=== PATIENT | male | born 1950 | race Caucasian/White ===

== ENCOUNTER → 2017-06-18 | Outpatient (CLI) | payer MEDICARE, OTHER ==
[~2017-06-18] MED LIST: ADVAIR 250-501 EACH IH; ADVAIR 250-501 EACH INH; ADVAIR HFA115 MCG/21 INH; ALBUTEROL SULFAT4 MG PO; ALBUTEROL2.5 MG/32 IH; ALDACTONE25 MG PO; ATROVENT30 ML IH; ATROVENT30 ML NS; AVELOX 400 MG400 MG PO; CARVEDILOL3.125 MG PO; CIPROFLOXACIN500 M1 PO; COZAAR 50 MG TA50 M2 PO; DUONEB 2.5-0.5 M3 ML INH; FUROSEMIDE 40 M40 M1 PO; GLYBURIDE 2.52.5 MG PO; HYDROCODON-ACE1 EACH PO; LANOXIN 0.250.25 M1 PO; LASIX PO; LEVAQUIN 500 M500 M2 PO; LISINOPRIL2.5 MG PO; METFORMIN HCL500 MG PO; METOPROLOL SUCC25 M1 PO; MUCINEX100 MG PO; PREDNISONE 10 M10 MG PO; PREDNISONE 20 M20 MG PO; PREDNISONE50 MG PO; PRINIVIL5 MG; PROTONIX40 M1 PO; PULMICORT FLEX90 MCG IH; SPIRONOLACTONE PO; THEOPHYLLINE S300 M1 PO; VENTOLIN HFA 1818 GM INH; XOLAIR INJ; XOPENEX; XOPENEX HF1 UDINHALE IH; ZPAK PO
[2017-06-18 10:45] LABS: HEMOGLOBIN 14.1 gm/dL (14.0-18.0); MCH 30.4 pg (26.0-34.0); MCHC 33.5 g/dL (28.0-37.0); MCV 90.8 fL (80.0-100.0); MPV 10.3 fl. (7.2-11.1); RBC 4.63 mil/uL (4.50-6.00); WBC 8.3 thou/uL (4.0-11.0)
[2017-06-18 11:03] LABS: ALBUMIN 3.6 g/dL (3.4-5.0); CALCIUM 8.8 mg/dL (8.5-10.1); CREATININE 0.7 mg/dL (0.6-1.3); POTASSIUM 4.2 mmol/L (3.5-5.1); TOTAL BILIRUBIN 0.5 mg/dL (<0.1-1.0); TOTAL PROTEIN 7.7 g/dL (6.4-8.2)
[2017-06-19 03:08] LABS: GLYCOHEMOGLOBIN (HGB A1C) 7.5 % (4.8-5.6)
== END ==
LOC: M.LAB 10:15
PROVIDERS: General Practice
DX: L03.90 Cellulitis, unspecified (principal); J44.1 Chronic obstructive pulmonary disease with (acute) exacerbation; I11.0 Hypertensive heart disease with heart failure; I50.9 Heart failure, unspecified

== ENCOUNTER → 2018-10-13 | Outpatient (CLI) | payer MEDICARE, OTHER ==
[2018-10-13 13:23] LABS: ALBUMIN 3.5 g/dL (3.4-5.0); ALKALINE PHOSPHATASE 61 U/L (46-116); ANION GAP 11 mmol/L (7-16); BUN 14 mg/dL (7-18); CALCIUM 9.1 mg/dL (8.5-10.1); CHLORIDE 99 mmol/L (98-107); CHOLESTEROL 153 mg/dL (<200); CO2 26 mmol/L (21-32); CREATININE 0.7 mg/dL (0.6-1.3); GLUCOSE 309 mg/dL (70-99); HDL CHOLESTEROL 49 mg/dL (>40); LDL CHOLESTEROL 82 mg/dL (<100); POTASSIUM 4.7 mmol/L (3.5-5.1); SGOT 32 U/L (15-37); SGPT 58 U/L (30-65); SODIUM 136 mmol/L (136-145); TC:HDL 3.1 Ratio (Not establshd); TOTAL BILIRUBIN 0.3 mg/dL (<0.1-1.0); TOTAL PROTEIN 7.1 g/dL (6.4-8.2); TRIGLYCERIDE 113 mg/dL (<150); VLDL 23 mg/dL (<40)
[2018-10-13 13:24] LABS: SERUM ASSESSMENT Clear
== END ==
LOC: M.RAD 11:58
PROVIDERS: Registered Nurse
DX: J84.9 Interstitial pulmonary disease, unspecified (principal); I48.0 Paroxysmal atrial fibrillation; E78.2 Mixed hyperlipidemia; I42.8 Other cardiomyopathies

== ENCOUNTER 2018-10-20 07:47 | Emergency (ER) | payer MEDICARE, OTHER ==
[~2018-10-20] VITALS: Ht 165.1 cm; Wt 119.8 kg
[2018-10-20] MEDS ORDERED: XARELTO20 MG PO (08:02)
[2018-10-20] MEDS ORDERED: SPIRONOLACTONE25 M1 PO (08:02)
[2018-10-20] MEDS ORDERED: PACERONE 200 M200 M1 PO (08:02)
[2018-10-20 08:32] LABS: ABSOLUTE BASOPHILS 0.1 thou/uL (0.0-0.2); ABSOLUTE EOSINOPHILS 0.1 thou/uL (0.0-0.7); ABSOLUTE LYMPHOCYTES 1.8 thou/uL (0.8-5.3); ABSOLUTE MONOCYTES 0.5 thou/uL (0.0-1.2); ABSOLUTE NEUTROPHILS 4.8 thou/uL (1.6-8.1); BASOPHILS 1.2 %; EOSINOPHILS 1.4 %; HEMATOCRIT 41.7 % (42.0-52.0); HEMOGLOBIN 14.2 gm/dL (14.0-18.0); LYMPHOCYTES 24.1 %; MCH 30.1 pg (26.0-34.0); MCV 88.6 fL (80.0-100.0); MONOCYTES 6.8 %; MPV 11.9 fl. (7.2-11.1); NUCLEATED RBCS 0 /100WBC; PLATELET COUNT* 148 thou/uL (150-400); POLYS 66.5 %; RBC 4.71 mil/uL (4.50-6.00); RDW-CV 12.7 % (10.5-14.5); WBC 7.3 thou/uL (4.0-11.0)
[2018-10-20 08:38] LABS: ANION GAP 10 mmol/L (7-16); APTT 30.3 Seconds (25.0-31.3); BUN 16 mg/dL (7-18); CALCIUM 8.8 mg/dL (8.5-10.1); CHLORIDE 96 mmol/L (98-107); CO2 25 mmol/L (21-32); CREATININE 0.9 mg/dL (0.6-1.3); GLUCOSE 311 mg/dL (70-99); INR 1.2; POTASSIUM 4.3 mmol/L (3.5-5.1); PROTIME 11.9 Seconds (9.20-11.50); SODIUM 131 mmol/L (136-145)
[2018-10-20 08:49] LABS: ALBUMIN 3.4 g/dL (3.4-5.0); ALKALINE PHOSPHATASE 64 U/L (46-116); LIPASE 56 U/L (73-393); MAGNESIUM 1.8 mg/dL (1.8-2.4); NT-PRO BRAIN NAT PEPTIDE 1494 pg/mL (<300); SGOT 27 U/L (15-37); SGPT 60 U/L (30-65); TOTAL BILIRUBIN 0.5 mg/dL (<0.1-1.0); TOTAL PROTEIN 7.2 g/dL (6.4-8.2); TROPONIN-I LEVEL <0.06 ng/mL (<0.06)
[2018-10-20] MEDS ORDERED: PREDNISONE 20 M20 M1 PO (09:06)
[2018-10-20 09:15] VITALS: BP 127/84
--- NOTE | 2018-10-20 10:54 | EKG ---
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: : 1950 Requested By: Garland Mayo Order Number: [id number] MD: Grady Santoyo Measurements Intervals [place] Rate: 87 P: [place]: QRS: -52 QRSD: 182 T: 123 QT: 429 QTc: 516 Interpretive Statements Afib/flut and V-paced complexes No further rhythm analysis attempted due to paced rhythm Left bundle branch block Baseline wander in lead(s) I,III,aVR,aVL Compared to ECG 01/23/2017 20:15:18 Left bundle-branch block now present Electronically Signed On 10-20-2018 10:54:10 CDT by Grady Santoyo [email or web address] <ELECTRONICALLY SIGNED> By: Grady Santoyo MD, FACC 10/20/18 1054 2 2 Grady Santoyo MD, FAC /EPI
== END 2018-10-20 09:16 | disposition home or self-care (01) ==
LOC: M.ERS 07:47
PROVIDERS: Family Medicine
DX: J44.1 Chronic obstructive pulmonary disease with (acute) exacerbation (principal); I50.9 Heart failure, unspecified; G47.30 Sleep apnea, unspecified; I48.91 Unspecified atrial fibrillation; E66.01 Morbid (severe) obesity due to excess calories; I73.9 Peripheral vascular disease, unspecified; I89.0 Lymphedema, not elsewhere classified; Z86.14 Personal history of Methicillin resistant Staphylococcus aureus infection; Z95.0 Presence of cardiac pacemaker; Z88.2 Allergy status to sulfonamides; Z88.5 Allergy status to narcotic agent; Z88.6 Allergy status to analgesic agent; Z88.8 Allergy status to other drugs, medicaments and biological substances; Z87.891 Personal history of nicotine dependence

== ENCOUNTER 2018-11-13 18:43 | Inpatient (IN) | payer MEDICARE, OTHER ==
[~2018-11-13] VITALS: Ht 165.1 cm; Wt 111.4 kg
[~2018-11-13 18:43] MED LIST changes: +COZAAR 50 MG TA50 M1 PO; -COZAAR 50 MG TA50 M2 PO; -DUONEB 2.5-0.5 M3 ML INH; +IPRAT-ALBUT 0.5-3 ML INH; +PACERONE 200 M200 M1 PO; +PREDNISONE 20 M20 M1 PO; +SPIRONOLACTONE25 M1 PO; +XARELTO20 MG PO
[2018-11-13 18:47] VITALS: BP 122/88
[2018-11-13] MEDS ORDERED: PACERONE 200 M200 M1 PO (18:52)
[2018-11-13] MEDS ORDERED: PENICILLIN V P500 MG PO (18:54)
[2018-11-13 20:03] LABS: ABSOLUTE BASOPHILS 0.1 thou/uL (0.0-0.2); ABSOLUTE EOSINOPHILS 0.1 thou/uL (0.0-0.7); ABSOLUTE LYMPHOCYTES 0.9 thou/uL (0.8-5.3); ABSOLUTE MONOCYTES 0.4 thou/uL (0.0-1.2); ABSOLUTE NEUTROPHILS 3.8 thou/uL (1.6-8.1); EOSINOPHILS 1.8 %; HEMATOCRIT 40.7 % (42.0-52.0); HEMOGLOBIN 13.5 gm/dL (14.0-18.0); LYMPHOCYTES 17.4 %; MCH 29.8 pg (26.0-34.0); MCHC 33.1 g/dL (28.0-37.0); MCV 89.8 fL (80.0-100.0); MONOCYTES 7.6 %; MPV 10.7 fl. (7.2-11.1); NUCLEATED RBCS 0 /100WBC; PLATELET COUNT* 117 thou/uL (150-400); POLYS 72.2 %; RBC 4.53 mil/uL (4.50-6.00); RDW-CV 13.3 % (10.5-14.5); WBC 5.3 thou/uL (4.0-11.0)
[2018-11-13 20:11] LABS: ANION GAP 5 mmol/L (7-16); BUN 13 mg/dL (7-18); CALCIUM 8.4 mg/dL (8.5-10.1); CHLORIDE 98 mmol/L (98-107); CO2 30 mmol/L (21-32); CREATININE 0.8 mg/dL (0.6-1.3); GLUCOSE 339 mg/dL (70-99); POTASSIUM 4.2 mmol/L (3.5-5.1); SODIUM 133 mmol/L (136-145)
[2018-11-13 20:13] LABS: APTT 34.9 Seconds (25.0-31.3); INR 1.2
[2018-11-13 20:21] LABS: ALBUMIN 3.1 g/dL (3.4-5.0); ALKALINE PHOSPHATASE 60 U/L (46-116); MAGNESIUM 1.8 mg/dL (1.8-2.4); SGOT 17 U/L (15-37); SGPT 31 U/L (30-65); TOTAL BILIRUBIN 0.5 mg/dL (<0.1-1.0); TOTAL PROTEIN 6.8 g/dL (6.4-8.2); TROPONIN-I LEVEL <0.06 ng/mL (<0.06)
[2018-11-13 20:52] LABS: BE 2.2 mmol/L (-2 to +3); PO2 81.1 mmHg (75.0-100.0); pH 7.487 (7.340-7.450)
[2018-11-13 22:07] VITALS: BP 91/61
[2018-11-13 22:25] VITALS: BP 132/68
[2018-11-14 02:14] LABS: HEMATOCRIT 39.4 % (42.0-52.0); HEMOGLOBIN 13.2 gm/dL (14.0-18.0); MCH 29.7 pg (26.0-34.0); MCHC 33.4 g/dL (28.0-37.0); MCV 88.9 fL (80.0-100.0); MPV 10.7 fl. (7.2-11.1); RBC 4.44 mil/uL (4.50-6.00); RDW-CV 13.1 % (10.5-14.5)
[2018-11-14 02:40] LABS: CALCIUM 8.1 mg/dL (8.5-10.1); CREATININE 0.8 mg/dL (0.6-1.3); MAGNESIUM 1.8 mg/dL (1.8-2.4); POTASSIUM 4.6 mmol/L (3.5-5.1); TOTAL BILIRUBIN 0.5 mg/dL (<0.1-1.0); TOTAL PROTEIN 6.4 g/dL (6.4-8.2)
[2018-11-14 04:00] VITALS: BP 103/68
[2018-11-14 08:00] VITALS: BP 104/69
[2018-11-14 11:37] VITALS: BP 106/68
--- NOTE | 2018-11-14 13:05 | EKG ---
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: [place] : 1950 Requested By: Juliana Alaniz Order Number: [id number] MD: Xiang Shepherd Measurements Intervals [place] Rate: 93 P: 59 CO: 194 QRS: 252 QRSD: 156 T: 55 QT: 409 QTc: 509 Interpretive Statements Atrial-sensed ventricular-paced complexes No further analysis attempted due to paced rhythm Baseline wander in lead(s) V2,V4 Compared to ECG 10/20/2018 08:23:39 Atrial fibrillation no longer present Electronically Signed On 11-14-2018 13:04:48 CDT by Xiang Shepherd [email or web address] <ELECTRONICALLY SIGNED> By: Xiang Shepherd MD, [facility] 11/14/18 1304 57 57 Xiang Shepherd MD, [facility] /EPI
[2018-11-14 15:24] VITALS: BP 97/53
[2018-11-15] VITALS: BP 103/54
[2018-11-15 03:07] LABS: GLYCOHEMOGLOBIN (HGB A1C) 13.7 % (4.8-5.6)
[2018-11-15 03:46] VITALS: BP 112/69
[2018-11-15 07:40] VITALS: BP 117/60
[2018-11-15 12:00] VITALS: BP 121/65
[2018-11-15 16:00] VITALS: BP 100/69
[2018-11-15 19:40] VITALS: BP 116/75
[2018-11-16] VITALS: BP 92/63
[2018-11-16 04:09] VITALS: BP 100/58
[2018-11-16 08:19] VITALS: BP 95/40
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
--- NOTE | 2018-11-16 10:56 | EKG ---
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 : 1950 Requested By: Xiang Shepherd Order Number: [id number] Reji MD: Xiang Shepherd Measurements Intervals [place] Rate: 98 P: VT: QRS: -14 QRSD: 183 T: 188 QT: 392 QTc: 501 Interpretive Statements Atrial fibrillation Left bundle branch block Compared to ECG 11/13/2018 19:58:59 Ventricular-paced complex(es) or rhythm no longer present Atrial fibrillation now noted Electronically Signed On 11-16-2018 10:56:31 CDT by Xiang Shepherd [email or web address] <ELECTRONICALLY SIGNED> By: Xiang Shepherd MD, [facility] 11/16/18 1056 Xiang Shepherd MD, [facility] /EPI
[2018-11-16 12:49] VITALS: BP 97/61
[2018-11-16 17:34] VITALS: BP 105/73
[2018-11-16 19:40] VITALS: BP 90/52
[2018-11-17] VITALS (7 sets, daily range): BP systolic 97–119; BP diastolic 51–67
[2018-11-17 04:25] LABS: HEMATOCRIT 43.6 % (42.0-52.0); HEMOGLOBIN 14.5 gm/dL (14.0-18.0); MCH 29.9 pg (26.0-34.0); MCHC 33.3 g/dL (28.0-37.0); MPV 10.5 fl. (7.2-11.1); RBC 4.84 mil/uL (4.50-6.00); RDW-CV 13.4 % (10.5-14.5); WBC 8.1 thou/uL (4.0-11.0)
[2018-11-17 04:44] LABS: CALCIUM 8.2 mg/dL (8.5-10.1); CREATININE 0.9 mg/dL (0.6-1.3); MAGNESIUM 2.1 mg/dL (1.8-2.4); POTASSIUM 5.1 mmol/L (3.5-5.1)
--- NOTE | 2018-11-17 16:09 | EKG ---
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
[2018-11-18] VITALS: BP 109/70
[2018-11-18 01:12] LABS: URINE BILIRUBIN NEGATIVE (Negative); URINE BLOOD NEGATIVE (Negative); URINE CLARITY CLEAR; URINE COLOR STRAW; URINE GLUCOSE-RANDOM NEGATIVE (Negative); URINE KETONES NEGATIVE (Negative); URINE LEUKOCYTES-REFLEX NEGATIVE (Negative); URINE NITRITE-REFLEX NEGATIVE (Negative); URINE PROTEIN NEGATIVE (Negative); URINE UROBILINOGEN 0.2 E.U./dl (0.2-1.0)
[2018-11-18 04:00] VITALS: BP 109/70; BP 118/65
[2018-11-18 08:00] VITALS: BP 112/80
[2018-11-18 12:00] VITALS: BP 117/68
[2018-11-18 14:00] VITALS: BP 101/66
[2018-11-18 20:00] VITALS: BP 110/75
[2018-11-19 00:04] VITALS: BP 127/51
[2018-11-19 04:00] VITALS: BP 108/64
[2018-11-19 05:27] LABS: HEMOGLOBIN 15.5 gm/dL (14.0-18.0); MCH 29.7 pg (26.0-34.0); MCV 89.8 fL (80.0-100.0); MPV 10.4 fl. (7.2-11.1); RBC 5.24 mil/uL (4.50-6.00); RDW-CV 13.5 % (10.5-14.5); WBC 12.5 thou/uL (4.0-11.0)
[2018-11-19 05:37] LABS: CALCIUM 8.7 mg/dL (8.5-10.1); CREATININE 0.9 mg/dL (0.6-1.3); MAGNESIUM 2.3 mg/dL (1.8-2.4)
[2018-11-19 08:00] VITALS: BP 109/75
[2018-11-19 11:29] VITALS: BP 92/60
[2018-11-19 16:00] VITALS: BP 114/58
[2018-11-19 20:00] VITALS: BP 97/71
[2018-11-20] VITALS: BP 114/81
[2018-11-20 04:00] VITALS: BP 102/67
[2018-11-20 08:00] VITALS: BP 100/67
[2018-11-20 13:26] VITALS: BP 92/57
[2018-11-20 19:25] VITALS: BP 93/54
[2018-11-21] VITALS: BP 104/68
[2018-11-21 04:00] VITALS: BP 117/75; BP 126/75
[2018-11-21 04:42] LABS: HEMATOCRIT 48.8 % (42.0-52.0); HEMOGLOBIN 16.1 gm/dL (14.0-18.0); MCH 29.5 pg (26.0-34.0); MCV 89.1 fL (80.0-100.0); MPV 10.2 fl. (7.2-11.1); RBC 5.47 mil/uL (4.50-6.00); RDW-CV 13.8 % (10.5-14.5); WBC 13.1 thou/uL (4.0-11.0)
[2018-11-21 05:00] LABS: CALCIUM 8.3 mg/dL (8.5-10.1); CREATININE 1.1 mg/dL (0.6-1.3); MAGNESIUM 2.4 mg/dL (1.8-2.4); POTASSIUM 5.1 mmol/L (3.5-5.1)
[2018-11-21 08:06] VITALS: BP 106/66
[2018-11-21 11:43] VITALS: BP 104/74
[2018-11-21 15:50] VITALS: BP 98/60
[2018-11-21 20:06] VITALS: BP 98/52
[2018-11-22] VITALS: BP 120/70
[2018-11-22 04:00] VITALS: BP 110/53
[2018-11-22 04:28] LABS: CREATININE 1.1 mg/dL (0.6-1.3); MAGNESIUM 2.3 mg/dL (1.8-2.4); POTASSIUM 4.8 mmol/L (3.5-5.1)
[2018-11-22 08:09] VITALS: BP 108/71
[2018-11-22 11:57] VITALS: BP 113/82
[2018-11-22 15:31] VITALS: BP 116/72
[2018-11-22 20:00] VITALS: BP 96/55
[2018-11-23 00:06] VITALS: BP 105/67
[2018-11-23 04:00] VITALS: BP 98/68
[2018-11-23 05:27] LABS: CALCIUM 8.2 mg/dL (8.5-10.1); CREATININE 1.1 mg/dL (0.6-1.3); MAGNESIUM 2.4 mg/dL (1.8-2.4)
[2018-11-23 08:00] VITALS: BP 93/69
[2018-11-23] MEDS ORDERED: SINGULAIR 10 MG10 M1 PO (08:27)
[2018-11-23] MEDS ORDERED: OMEPRAZOLE40 MG PO (08:27)
[2018-11-23] MEDS ORDERED: GLUCOTROL5 MG PO (08:27)
[2018-11-23] MEDS ORDERED: MUCINEX600 MG PO (08:27)
[2018-11-23] MEDS ORDERED: PREDNISONE 10 M10 MG PO (08:27)
[2018-11-23] MEDS ORDERED: LANTUS100 UNIT/M SUBQ (08:30)
[2018-11-23 11:27] VITALS: BP 103/60
[2018-11-23] MEDS ORDERED: PACERONE 200 M200 M1 PO (14:08)
== END 2018-11-23 16:53 | disposition home or self-care (01) | DRG 291 ==
LOC: M.ERS 18:43 → M.TBA-ER 20:58 → M.2W 20:58
PROVIDERS: Internal Medicine; Personal Emergency Response Attendant; ADMIT Internal Medicine
PROC: 5A09357 Assistance with Respiratory Ventilation, Less than 24 Consecutive Hours, Continuous Positive Airway Pressure (ICD-10-PCS; principal; 2018-11-14)
DX: I50.23 Acute on chronic systolic (congestive) heart failure (principal); J96.01 Acute respiratory failure with hypoxia; J44.1 Chronic obstructive pulmonary disease with (acute) exacerbation; Z68.41 Body mass index [BMI] 40.0-44.9, adult; I42.9 Cardiomyopathy, unspecified; I47.2 Ventricular tachycardia; J44.0 Chronic obstructive pulmonary disease with (acute) lower respiratory infection; G47.33 Obstructive sleep apnea (adult) (pediatric); I44.7 Left bundle-branch block, unspecified; J20.9 Acute bronchitis, unspecified; E11.51 Type 2 diabetes mellitus with diabetic peripheral angiopathy without gangrene; E11.65 Type 2 diabetes mellitus with hyperglycemia; I89.0 Lymphedema, not elsewhere classified; I48.91 Unspecified atrial fibrillation; E66.01 Morbid (severe) obesity due to excess calories; Z88.6 Allergy status to analgesic agent; Z88.1 Allergy status to other antibiotic agents; Z88.2 Allergy status to sulfonamides; Z88.8 Allergy status to other drugs, medicaments and biological substances; Z95.810 Presence of automatic (implantable) cardiac defibrillator; Z82.49 Family history of ischemic heart disease and other diseases of the circulatory system; Z87.891 Personal history of nicotine dependence

== ENCOUNTER → 2018-12-03 | Outpatient (CLI) | payer MEDICARE, OTHER ==
[~2018-12-03] MED LIST changes: +GLUCOTROL5 MG PO; +LANTUS100 UNIT/M SUBQ; +MUCINEX600 MG PO; +OMEPRAZOLE40 MG PO; +PENICILLIN V P500 MG PO; +SINGULAIR 10 MG10 M1 PO
[2018-12-03 11:37] LABS: CALCIUM 8.2 mg/dL (8.5-10.1); CREATININE 0.9 mg/dL (0.6-1.3); POTASSIUM 4.3 mmol/L (3.5-5.1)
== END ==
LOC: M.LAB 10:42
PROVIDERS: Nurse Practitioner
DX: I50.22 Chronic systolic (congestive) heart failure (principal); I48.91 Unspecified atrial fibrillation; G47.33 Obstructive sleep apnea (adult) (pediatric); E11.9 Type 2 diabetes mellitus without complications; J42 Unspecified chronic bronchitis

== ENCOUNTER → 2019-01-12 | Outpatient (CLI) | payer MEDICARE, OTHER ==
[2019-01-12 09:00] VITALS: BP 124/74
[2019-01-12 09:31] LABS: HEMATOCRIT 36.8 % (42.0-52.0); HEMOGLOBIN 12.2 gm/dL (14.0-18.0); MCH 30.1 pg (26.0-34.0); MCHC 33.2 g/dL (28.0-37.0); MCV 90.7 fL (80.0-100.0); MPV 10.9 fl. (7.2-11.1); RBC 4.05 mil/uL (4.50-6.00); RDW-CV 15.7 % (10.5-14.5); WBC 6.2 thou/uL (4.0-11.0)
[2019-01-12 09:41] LABS: CALCIUM 9.1 mg/dL (8.5-10.1); CREATININE 0.9 mg/dL (0.6-1.3); POTASSIUM 4.3 mmol/L (3.5-5.1)
[2019-01-12 09:45] LABS: ALBUMIN 3.3 g/dL (3.4-5.0); TOTAL BILIRUBIN 0.6 mg/dL (<0.1-1.0)
[2019-01-12 09:49] VITALS: BP 103/54
[2019-01-12 09:53] VITALS: BP 103/64
--- NOTE | 2019-01-12 10:03 | EKG ---
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
[2019-01-12 10:22] VITALS: BP 106/58
[2019-01-12 11:11] VITALS: BP 115/58
--- NOTE | 2019-01-20 08:20 | CARD ---
[address] [address] CARDIAC CATH REPORT Name: MARQUITA MATHEW Room: [facility]#: [id number] Admission: 01/12/19 Attend Phys: Grady Santoyo MD Discharge: Date of : 50 Report #: [id number] THIS REPORT FOR: //name// CC: Grady Quarles PROCEDURE: Cardioversion. INDICATION: Persistent atrial fibrillation. DESCRIPTION OF PROCEDURE: After informed consent was obtained, the patient was brought to the cardiac holding area. The patient was given intravenous Versed and fentanyl for conscious sedation. Once the patient was adequately sedated, he received a single biphasic shock of 300 joules converting from atrial fibrillation to sinus rhythm with ventricular pacing. The patient tolerated the procedure well without complication. IMPRESSION: 1. Persistent atrial fibrillation. 2. Successful direct current cardioversion to normal sinus rhythm. <ELECTRONICALLY SIGNED> By: Grady Santoyo MD, FACC 01/20/19 0820 1751 2104Mickatie Santoyo MD, FACC /nt
== END | disposition home or self-care (01) ==
LOC: M.CL 08:44
PROVIDERS: Internal Medicine Cardiovascular Disease
DX: I48.19 Other persistent atrial fibrillation (principal); J44.9 Chronic obstructive pulmonary disease, unspecified; I50.22 Chronic systolic (congestive) heart failure; E66.01 Morbid (severe) obesity due to excess calories; I73.9 Peripheral vascular disease, unspecified; G47.30 Sleep apnea, unspecified; Z98.890 Other specified postprocedural states; Z95.0 Presence of cardiac pacemaker; Z79.01 Long term (current) use of anticoagulants; Z88.8 Allergy status to other drugs, medicaments and biological substances; Z88.2 Allergy status to sulfonamides; Z79.899 Other long term (current) drug therapy; Z87.891 Personal history of nicotine dependence; Z82.49 Family history of ischemic heart disease and other diseases of the circulatory system

== ENCOUNTER → 2019-02-10 | Outpatient (CLI) | payer MEDICARE, OTHER ==
[~2019-02-10] MED LIST changes: +KEFLEX500 M2 PO
== END ==
LOC: M.ULTRA 12:50
DX: M79.89 Other specified soft tissue disorders (principal); M79.605 Pain in left leg

== ENCOUNTER 2019-02-12 12:30 | Inpatient (IN) | payer MEDICARE, OTHER ==
[~2019-02-12] VITALS: Ht 165.1 cm; Wt 113.4 kg
--- NOTE | ~2019-02-12 | CON ---
[address] [address] CONSULTATION Name: MARQUITA MATHEW Room: [address] IN M.R.#: [id number] Admission: 02/12/19 Attend Phys: Sherly Campos Discharge: Date of : 50 Report #: [id number] THIS REPORT FOR: //name// CC: Frank Urbina DATE OF SERVICE: 02/14/2019 INFECTIOUS DISEASE CONSULTATION ATTENDING PHYSICIAN: Eladio Urbina DO HISTORY OF PRESENT ILLNESS: The patient is a 68-year-old white man who developed some fevers and chills on Friday, he thought he might have a viral infection, but he was corrected by Emergency Room physician and advised he has cellulitis of the left leg, superimposed on chronic stasis dermatitis and started on treatment with vancomycin and clindamycin, correct choice. The patient is some better. Obviously still significant pain, left leg. He has chronic stasis dermatitis both lower extremities and I believe this might be the first bout of cellulitis, though I read in the chart that he had previous Staphylococcus aureus infection. PAST MEDICAL HISTORY: Chronic obstructive pulmonary disease. Obesity. Left bundle branch block requiring permanent pacemaker at [facility]. Subsequent development of atrial fibrillation requiring conversion. Diabetes mellitus, congestive heart failure, undescended testicle, missing teeth, periodontal disease, obstructive sleep apnea. DRUG ALLERGIES: ASPIRIN, CEFOTAXIME, ERYTHROMYCIN, OXYCODONE, ____, SECOBARBITAL, SULFA DRUGS. MEDICATIONS: The patient is currently on treatment with ibuprofen 800 mg p.r.n. every 6 hours, oxycodone 5 mg every 6 hours p.r.n., vancomycin 1 gram IV every 12 hours, insulin glargine as directed subcutaneously, montelukast 10 mg at bedtime, metoprolol 12.5 b.i.d., budesonide 0.5 mg b.i.d. inhalation, furosemide 40 mg p.o. daily, spironolactone 25 mg daily, losartan 25 mg daily, amiodarone 200 mg daily, rivaroxaban 25 mg with dinner, Atrovent and albuterol inhalation treatments every 4 hours, clindamycin 50 mL every 6 hours which somehow it translates into 600 mg IV every 6 hours (____), albuterol inhalation treatments p.r.n. and sodium chloride at 1000 mL every 10 hours. SOCIAL HISTORY: See H and P. FAMILY HISTORY: See H and P. REVIEW OF SYSTEMS: See H [place] [address] CONSULTATION Name: MARQUITA MATHEW Room: [address] IN M.R.#: [id number] Admission: 02/12/19 Attend Phys: Sherly Campos Discharge: Date of : 50 Report #: [id number] PHYSICAL EXAMINATION: GENERAL: Morbidly obese white man, not toxic-looking, no distress. VITAL SIGNS: Afebrile since admission, temperature 98.5, pulse 97, respirations 20, BP 111/65. Height 5 feet 5 inches, weight 250 pounds. HEENT: Pupils are reactive. Conjunctivae normal. Mouth: Missing most teeth, but a few incisors on the right side of the jaw that are miserably infected with periodontal disease and must be extracted. NECK: Supple, no thyromegaly. LUNGS: Clear. Pacemaker pocket. CHEST: Left infraclavicular region with no fluid around it, it looks fine. HEART: S1, S2. No gallop or murmur. ABDOMEN: Obese, soft, no masses or megaly. GENITALIA AND RECTAL: Deferred. EXTREMITIES: Reveal typical stasis dermatitis with hyperpigmentation right leg. Onychogryphosis, left foot. No obvious tinea pedis, but there might be some there. Redness and swelling and tenderness, increased temperature left leg, obvious cellulitis, left leg, either due to Streptococcus or Staphylococcus since I see no open lesions. LABORATORY DATA: Ultrasound venous, left lower extremity, negative for DVT. BMP revealed a BUN of 28, creatinine 1.1, glucose between 105 and 190. His calcium is 8.3, very likely secondary to hypoalbuminemia of 2.9 g/dL. His vancomycin trough was 13 mcg/dL which is within therapeutic range. WBC normal at 8.8, hemoglobin low 12.8, platelets normal at 168,000. White blood cell count rather unremarkable. Blood cultures obviously were obtained and obviously they remain negative, I suspect they will be negative forever. ASSESSMENT: 1. Cellulitis, left lower extremity, superimposed on chronic stasis dermatitis and very likely tinea pedis. 2. Diabetes mellitus. 3. Chronic kidney disease. 4. Left bundle branch block, status post permanent pacemaker, complicated by atrial fibrillation, status post cardioversion and congestive heart failure. 5. Morbid obesity. SUGGESTIONS: Recommend continue vancomycin. Obviously, if no MRSA is found, Rocephin will be the drug of choice. Cleocin for 24-48 hours will prevent release of toxin by Streptococcus should this be the germ. Lotrisone cream might help. Also advised the patient, he must have total dental extraction to prevent complication of chronic inflammation up on the cardiovascular system. Immunizations with Pneumovax and influenza vaccine obviously need that to be emphasized. [address] [address] CONSULTATION Name: MARQUITA MATHEW Room: [address] IN M.R.#: [id number] Admission: 02/12/19 Attend Phys: Sherly Campos Discharge: Date of : 50 Report #: [id number] Urbina, thank you for requesting my suggestions. By: 0452 1023Gmeek Carrero MD /lexie
[2019-02-12 09:15] VITALS: BP 108/60
[~2019-02-12 12:30] MED LIST changes: -KEFLEX500 M2 PO
[2019-02-12 12:37] VITALS: BP 127/64
[2019-02-12] MEDS ORDERED: KEFLEX500 M2 PO (12:42)
[2019-02-12 13:37] LABS: HEMATOCRIT 37.6 % (42.0-52.0); HEMOGLOBIN 12.8 gm/dL (14.0-18.0); MCHC 33.9 g/dL (28.0-37.0); MCV 88.6 fL (80.0-100.0); MPV 10.3 fl. (7.2-11.1); NUCLEATED RBCS 0 /100WBC; PLATELET COUNT* 168 thou/uL (150-400); RBC 4.25 mil/uL (4.50-6.00); RDW-CV 14.5 % (10.5-14.5); WBC 8.8 thou/uL (4.0-11.0)
[2019-02-12 13:41] LABS: CALCIUM 8.3 mg/dL (8.5-10.1); CREATININE 1.1 mg/dL (0.6-1.3); POTASSIUM 3.9 mmol/L (3.5-5.1)
[2019-02-12 13:45] LABS: ALBUMIN 2.9 g/dL (3.4-5.0); TOTAL BILIRUBIN 0.5 mg/dL (<0.1-1.0); TOTAL PROTEIN 7.6 g/dL (6.4-8.2)
[2019-02-12 14:03] LABS: ABSOLUTE EOSINOPHILS 0.2 thou/uL (0.0-0.7); ABSOLUTE LYMPHOCYTES 2.4 thou/uL (0.8-5.3); ABSOLUTE MONOCYTES 0.5 thou/uL (0.0-1.2); ABSOLUTE NEUTROPHILS 5.7 thou/uL (1.6-8.1); ATYPICAL LYMPHS 1 %; METAMYELOCYTES 2 %; MYELOCYTES 3 %; PLATELET ESTIMATE ADEQUATE
[2019-02-12 15:20] VITALS: BP 127/64
[2019-02-12 21:00] VITALS: BP 108/60
[2019-02-13 05:58] VITALS: BP 123/53
[2019-02-13 08:34] VITALS: BP 119/55
[2019-02-13 16:30] VITALS: BP 115/61
[2019-02-13 21:00] VITALS: BP 111/65
[2019-02-14 09:00] VITALS: BP 118/62
[2019-02-14 20:45] VITALS: BP 98/54
[2019-02-15 04:07] LABS: ABSOLUTE BASOPHILS 0.1 thou/uL (0.0-0.2); ABSOLUTE EOSINOPHILS 0.2 thou/uL (0.0-0.7); ABSOLUTE MONOCYTES 0.5 thou/uL (0.0-1.2); ABSOLUTE NEUTROPHILS 6.9 thou/uL (1.6-8.1); BASOPHILS 0.7 %; EOSINOPHILS 2.2 %; HEMATOCRIT 33.1 % (42.0-52.0); HEMOGLOBIN 10.9 gm/dL (14.0-18.0); LYMPHOCYTES 11.3 %; MCH 29.5 pg (26.0-34.0); MCV 89.3 fL (80.0-100.0); MONOCYTES 5.3 %; MPV 9.3 fl. (7.2-11.1); NUCLEATED RBCS 0 /100WBC; PLATELET COUNT* 165 thou/uL (150-400); POLYS 80.5 %; RDW-CV 14.1 % (10.5-14.5); WBC 8.6 thou/uL (4.0-11.0)
[2019-02-15 04:34] LABS: CALCIUM 7.9 mg/dL (8.5-10.1); CREATININE 0.7 mg/dL (0.6-1.3); POTASSIUM 4.3 mmol/L (3.5-5.1); TOTAL BILIRUBIN 0.4 mg/dL (<0.1-1.0); TOTAL PROTEIN 6.4 g/dL (6.4-8.2)
[2019-02-15 07:30] VITALS: BP 111/68
[2019-02-15 16:54] VITALS: BP 111/51
[2019-02-15 20:39] VITALS: BP 96/54
[2019-02-16 04:30] LABS: ABSOLUTE BASOPHILS 0.1 thou/uL (0.0-0.2); ABSOLUTE EOSINOPHILS 0.2 thou/uL (0.0-0.7); ABSOLUTE MONOCYTES 0.5 thou/uL (0.0-1.2); ABSOLUTE NEUTROPHILS 6.2 thou/uL (1.6-8.1); BASOPHILS 0.8 %; HEMOGLOBIN 11.2 gm/dL (14.0-18.0); LYMPHOCYTES 13.1 %; MCH 29.2 pg (26.0-34.0); MCV 88.7 fL (80.0-100.0); MONOCYTES 5.9 %; MPV 9.4 fl. (7.2-11.1); NUCLEATED RBCS 0 /100WBC; PLATELET COUNT* 173 thou/uL (150-400); POLYS 78.2 %; RBC 3.84 mil/uL (4.50-6.00); RDW-CV 14.6 % (10.5-14.5); WBC 7.9 thou/uL (4.0-11.0)
[2019-02-16 08:00] VITALS: BP 98/61
[2019-02-16 15:53] VITALS: BP 103/62
[2019-02-16 21:31] VITALS: BP 98/56
[2019-02-17 10:34] VITALS: BP 112/62
[2019-02-17 15:08] VITALS: BP 112/62
[2019-02-17 16:02] VITALS: BP 113/59
[2019-02-17 21:00] VITALS: BP 125/56
[2019-02-18 08:10] VITALS: BP 109/66
[2019-02-18 15:42] VITALS: BP 112/67
[2019-02-18 20:30] VITALS: BP 126/55
[2019-02-19 08:15] VITALS: BP 102/63
[2019-02-19] MEDS ORDERED: CLEOCIN HCL300 MG PO (16:16)
[2019-02-19] MEDS ORDERED: IBU800 MG PO (16:18)
[2019-02-19 16:30] VITALS: BP 112/66
== END 2019-02-19 18:20 | disposition home health service (06) | DRG 602 ==
LOC: M.ERS 12:30 → M.TBA-ER 13:32 → M.ORTHSURG 13:32
PROVIDERS: Physician Assistant; ADMIT Internal Medicine
DX: L03.116 Cellulitis of left lower limb (principal); I50.23 Acute on chronic systolic (congestive) heart failure; Z68.41 Body mass index [BMI] 40.0-44.9, adult; I48.20 Chronic atrial fibrillation, unspecified; J44.9 Chronic obstructive pulmonary disease, unspecified; I87.2 Venous insufficiency (chronic) (peripheral); E11.51 Type 2 diabetes mellitus with diabetic peripheral angiopathy without gangrene; G47.33 Obstructive sleep apnea (adult) (pediatric); E11.22 Type 2 diabetes mellitus with diabetic chronic kidney disease; N18.9 Chronic kidney disease, unspecified; I44.7 Left bundle-branch block, unspecified; I89.8 Other specified noninfective disorders of lymphatic vessels and lymph nodes; E66.01 Morbid (severe) obesity due to excess calories; Z95.0 Presence of cardiac pacemaker; Z79.899 Other long term (current) drug therapy; Z79.4 Long term (current) use of insulin; Z88.6 Allergy status to analgesic agent; Z88.2 Allergy status to sulfonamides; Z88.1 Allergy status to other antibiotic agents; Z88.8 Allergy status to other drugs, medicaments and biological substances; Z79.51 Long term (current) use of inhaled steroids; Z82.5 Family history of asthma and other chronic lower respiratory diseases; Z82.49 Family history of ischemic heart disease and other diseases of the circulatory system; Z80.0 Family history of malignant neoplasm of digestive organs; Z80.1 Family history of malignant neoplasm of trachea, bronchus and lung; Z87.891 Personal history of nicotine dependence

== ENCOUNTER → 2019-02-26 | Outpatient (CLI) | payer MEDICARE, OTHER ==
[~2019-02-26] MED LIST changes: +CLEOCIN HCL300 MG PO; +IBU800 MG PO; +KEFLEX500 M2 PO
--- NOTE | 2019-03-01 11:08 | CON ---
[address] [address] CONSULTATION Name: MARQUITA MATHEW Room: [facility]#: [id number] Admission: 02/26/19 Attend Phys: Frank Quarles, Discharge: Date of : 50 Report #: [id number] THIS REPORT FOR: //name// CC: Frank Quarles DATE OF SERVICE: 02/26/2019 ATTENDING PHYSICIAN: Dr. Frank Quarles. HISTORY OF PRESENT ILLNESS: He is here for followup hospitalization for left lower extremity inflammatory eruption, likely multifactorial, certainly a component of cellulitis, skin and soft tissue infection. The patient returns in followup, having been discharged roughly a week ago, had developed a cellulitis, was treated with parenteral therapy initially, switched to oral, which he has taken a week post-hospitalization plan 2-week course. On examination, his lower extremity below the knee appeared to be much improved. There is some desquamation. It is really much less tender. There is no further bullous lesions, no ulcers at this point, very little tenderness. ASSESSMENT AND PLAN: Left lower extremity cellulitis. We will continue as prescribed. He was instructed to call if problems or concerns. We will see him in followup in 1-2 weeks. <ELECTRONICALLY SIGNED> By: Adriano Varela MD 03/01/19 1108 1520 2306Josenatalee Varela MD /lexie
== END ==
LOC: M.WC 09:00
DX: I89.0 Lymphedema, not elsewhere classified (principal); E11.51 Type 2 diabetes mellitus with diabetic peripheral angiopathy without gangrene; L03.116 Cellulitis of left lower limb; I11.0 Hypertensive heart disease with heart failure; I50.9 Heart failure, unspecified; G47.30 Sleep apnea, unspecified; E66.01 Morbid (severe) obesity due to excess calories; I48.91 Unspecified atrial fibrillation; J44.9 Chronic obstructive pulmonary disease, unspecified; Z95.0 Presence of cardiac pacemaker; Z68.41 Body mass index [BMI] 40.0-44.9, adult; Z87.891 Personal history of nicotine dependence

== ENCOUNTER → 2019-03-04 | Outpatient (CLI) | payer MEDICARE, OTHER | LOC: M.WC 04:52 | DX: S81.801D Unspecified open wound, right lower leg, subsequent encounter (principal); L03.116 Cellulitis of left lower limb; I89.0 Lymphedema, not elsewhere classified; I11.0 Hypertensive heart disease with heart failure; I50.9 Heart failure, unspecified; I48.91 Unspecified atrial fibrillation; E11.51 Type 2 diabetes mellitus with diabetic peripheral angiopathy without gangrene; E66.01 Morbid (severe) obesity due to excess calories; G47.30 Sleep apnea, unspecified; J44.9 Chronic obstructive pulmonary disease, unspecified; Z68.41 Body mass index [BMI] 40.0-44.9, adult; Z95.0 Presence of cardiac pacemaker; Z87.891 Personal history of nicotine dependence; X58.XXXD Exposure to other specified factors, subsequent encounter ==

== ENCOUNTER → 2019-03-18 | Outpatient (CLI) | payer MEDICARE, OTHER | LOC: M.WC 09:30 | DX: S81.801D Unspecified open wound, right lower leg, subsequent encounter (principal); L03.116 Cellulitis of left lower limb; I89.0 Lymphedema, not elsewhere classified; E11.51 Type 2 diabetes mellitus with diabetic peripheral angiopathy without gangrene; E66.01 Morbid (severe) obesity due to excess calories; G47.30 Sleep apnea, unspecified; I11.0 Hypertensive heart disease with heart failure; I50.9 Heart failure, unspecified; I48.91 Unspecified atrial fibrillation; J44.9 Chronic obstructive pulmonary disease, unspecified; Z87.891 Personal history of nicotine dependence; Z95.0 Presence of cardiac pacemaker; X58.XXXD Exposure to other specified factors, subsequent encounter ==

== ENCOUNTER → 2019-03-22 | Outpatient (CLI) | payer MEDICARE, OTHER ==
[2019-03-22 12:24] LABS: CALCIUM 8.1 mg/dL (8.5-10.1); CREATININE 0.9 mg/dL (0.6-1.3); POTASSIUM 3.7 mmol/L (3.5-5.1)
== END ==
LOC: M.LAB 11:46
PROVIDERS: Internal Medicine Cardiovascular Disease
DX: I42.8 Other cardiomyopathies (principal)

== ENCOUNTER → 2019-03-31 | Outpatient (CLI) | payer MEDICARE, OTHER | LOC: M.WC 11:00 | DX: I89.0 Lymphedema, not elsewhere classified (principal); S81.801D Unspecified open wound, right lower leg, subsequent encounter; L03.116 Cellulitis of left lower limb; E11.51 Type 2 diabetes mellitus with diabetic peripheral angiopathy without gangrene; E66.01 Morbid (severe) obesity due to excess calories; G47.30 Sleep apnea, unspecified; I11.0 Hypertensive heart disease with heart failure; I50.9 Heart failure, unspecified; I48.91 Unspecified atrial fibrillation; J44.9 Chronic obstructive pulmonary disease, unspecified; Z95.0 Presence of cardiac pacemaker; Z87.891 Personal history of nicotine dependence; Z68.41 Body mass index [BMI] 40.0-44.9, adult; X58.XXXD Exposure to other specified factors, subsequent encounter ==

== ENCOUNTER → 2019-04-15 | Outpatient (CLI) | payer MEDICARE, OTHER | LOC: M.WC 10:30 | DX: S81.801D Unspecified open wound, right lower leg, subsequent encounter (principal); I89.0 Lymphedema, not elsewhere classified; L03.116 Cellulitis of left lower limb; E11.51 Type 2 diabetes mellitus with diabetic peripheral angiopathy without gangrene; E66.01 Morbid (severe) obesity due to excess calories; I11.0 Hypertensive heart disease with heart failure; I50.9 Heart failure, unspecified; I48.91 Unspecified atrial fibrillation; G47.30 Sleep apnea, unspecified; J44.9 Chronic obstructive pulmonary disease, unspecified; Z95.0 Presence of cardiac pacemaker; Z87.891 Personal history of nicotine dependence; Z68.41 Body mass index [BMI] 40.0-44.9, adult; X58.XXXD Exposure to other specified factors, subsequent encounter ==

== ENCOUNTER → 2019-05-06 | Outpatient (CLI) | payer MEDICARE, OTHER | LOC: M.WC 04:42 | DX: S81.801D Unspecified open wound, right lower leg, subsequent encounter (principal); L03.116 Cellulitis of left lower limb; I89.0 Lymphedema, not elsewhere classified; E11.51 Type 2 diabetes mellitus with diabetic peripheral angiopathy without gangrene; E66.01 Morbid (severe) obesity due to excess calories; G47.30 Sleep apnea, unspecified; I11.0 Hypertensive heart disease with heart failure; I50.9 Heart failure, unspecified; I48.91 Unspecified atrial fibrillation; J44.9 Chronic obstructive pulmonary disease, unspecified; Z95.0 Presence of cardiac pacemaker; Z87.891 Personal history of nicotine dependence; Z68.41 Body mass index [BMI] 40.0-44.9, adult ==

== ENCOUNTER → 2019-05-20 | Outpatient (CLI) | payer MEDICARE, OTHER ==
[~2019-05-20] MED LIST changes: +ENTRESTO 24 MG1 EACH PO
== END ==
LOC: M.WC 04:52
DX: S81.801D Unspecified open wound, right lower leg, subsequent encounter (principal); I89.0 Lymphedema, not elsewhere classified; L03.116 Cellulitis of left lower limb; E11.51 Type 2 diabetes mellitus with diabetic peripheral angiopathy without gangrene; E66.01 Morbid (severe) obesity due to excess calories; G47.30 Sleep apnea, unspecified; I11.0 Hypertensive heart disease with heart failure; I50.9 Heart failure, unspecified; I48.91 Unspecified atrial fibrillation; J44.9 Chronic obstructive pulmonary disease, unspecified; Z87.891 Personal history of nicotine dependence; Z95.0 Presence of cardiac pacemaker; Z68.41 Body mass index [BMI] 40.0-44.9, adult; X58.XXXD Exposure to other specified factors, subsequent encounter

== ENCOUNTER 2019-05-23 16:18 | Inpatient (IN) | payer MEDICARE, OTHER ==
[~2019-05-23] VITALS: Ht 165.1 cm; Wt 119.6 kg
[~2019-05-23 16:18] MED LIST changes: -ENTRESTO 24 MG1 EACH PO
[2019-05-23 16:26] VITALS: BP 125/64
[2019-05-23] MEDS ORDERED: ENTRESTO 24 MG1 EACH PO (16:41)
[2019-05-23 17:43] LABS: ABSOLUTE BASOPHILS 0.1 thou/uL (0.0-0.2); ABSOLUTE EOSINOPHILS 0.1 thou/uL (0.0-0.7); ABSOLUTE LYMPHOCYTES 1.1 thou/uL (0.8-5.3); ABSOLUTE MONOCYTES 0.8 thou/uL (0.0-1.2); ABSOLUTE NEUTROPHILS 3.6 thou/uL (1.6-8.1); BASOPHILS 0.9 %; HEMATOCRIT 35.2 % (42.0-52.0); HEMOGLOBIN 12.1 gm/dL (14.0-18.0); LYMPHOCYTES 19.1 %; MCH 30.5 pg (26.0-34.0); MCHC 34.5 g/dL (28.0-37.0); MCV 88.4 fL (80.0-100.0); MONOCYTES 13.7 %; MPV 10.7 fl. (7.2-11.1); NUCLEATED RBCS 0 /100WBC; PLATELET COUNT* 105 thou/uL (150-400); POLYS 64.3 %; RBC 3.98 mil/uL (4.50-6.00); RDW-CV 15.1 % (10.5-14.5); WBC 5.7 thou/uL (4.0-11.0)
[2019-05-23 17:51] LABS: APTT 33.1 Seconds (25.0-31.3); INR 1.1
[2019-05-23 17:56] LABS: CALCIUM 8.2 mg/dL (8.5-10.1); POTASSIUM 3.4 mmol/L (3.5-5.1)
[2019-05-23 18:07] LABS: ALBUMIN 3.4 g/dL (3.4-5.0); MAGNESIUM 1.9 mg/dL (1.8-2.4); TOTAL BILIRUBIN 0.5 mg/dL (<0.1-1.0); TOTAL PROTEIN 6.8 g/dL (6.4-8.2)
[2019-05-23 20:10] VITALS: BP 129/56
[2019-05-23 21:02] VITALS: BP 111/54
[2019-05-24 00:18] VITALS: BP 115/54
[2019-05-24 04:00] VITALS: BP 127/48
--- NOTE | 2019-05-24 05:02 | NUR ---
RECEIVED PT PER CART FROM ED AT [facility]PROX 2004. PT IS AWAKE AND ORIENTED X4. BARREL INSPECTOR TIGHT PUT IN PLACE PT IS AV PACED. ADMISSION ASSESSMENT DONE AND CHARTED. PT IS ADVISED ON THE USE OF CALL LIGHT AND ON THE ROOM SET UP. HIGH FALL PRECAUTIONS IN PLACE. CALL LIGHT WITHIN REACH. HOURLY ROUNDING DONE FOR PT SAFETY.
[2019-05-24 08:00] VITALS: BP 118/56
--- NOTE | 2019-05-24 11:08 | NUR ---
Pt is A&O. Resides at home with his , dtr, DIL and grandkids. Independent, family assists as needed. Pt uses a cane for mobility, states that he refuses to use a walker or wc. No home o2. Pt has a bipap. Hx of HH. No hx of SNF. Goal is home at dc, Pt does not think he will have any dc needs. Following.
[2019-05-24 12:00] VITALS: BP 119/54
[2019-05-24 16:00] VITALS: BP 113/55
--- NOTE | 2019-05-24 16:27 | EKG ---
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[place] : 1950 Requested By: Bradly De La Cruz Order Number: [id number] MD: Grady Santoyo Measurements Intervals [place] Rate: 89 P: 73 RI: 177 QRS: 252 QRSD: 171 T: 59 QT: 431 QTc: 525 Interpretive Statements Atrial-sensed ventricular-paced rhythm No further analysis attempted due to paced rhythm Compared to ECG 01/12/2019 09:26:02 Atrial fibrillation no longer present Prolonged QT interval no longer present Electronically Signed On 05-24-2019 16:25:56 CDT by Grady Santoyo [email or web address] <ELECTRONICALLY SIGNED> By: Grady Santoyo MD, FACC 05/24/19 1625 1630 1630 Grady Santoyo MD, FACC /EPI
--- NOTE | 2019-05-24 19:56 | NUR ---
RECEIVED REPORT AND ASSUMED CARE AT 0700.VSS. CARDIAC MONITORING IN PLACE. PT DENIES COMPLAINTS OF PAIN. ASSESSMENT COMPLETED CHARTED. PT UP WITH ASSIST WITH CANE, ON 2L NC. BED LOCKED IN LOWEST POSITION, CALL LIGHT WITHIN REACH, BED ALARM ON. NO ACUTE CHANGES THROUGH SHIFT, HOURLY ROUNDING COMPLETED AND ALL NEEDS MET.
[2019-05-24 20:00] VITALS: BP 115/56
[2019-05-25] VITALS: BP 129/65
[2019-05-25 04:14] LABS: HEMATOCRIT 35.8 % (42.0-52.0); HEMOGLOBIN 12.3 gm/dL (14.0-18.0); MCHC 34.4 g/dL (28.0-37.0); MCV 87.1 fL (80.0-100.0); MPV 10.4 fl. (7.2-11.1); NUCLEATED RBCS 0 /100WBC; PLATELET COUNT* 122 thou/uL (150-400); RBC 4.12 mil/uL (4.50-6.00); RDW-CV 14.5 % (10.5-14.5); WBC 9.5 thou/uL (4.0-11.0)
[2019-05-25 04:16] LABS: CREATININE 0.9 mg/dL (0.6-1.3); POTASSIUM 3.6 mmol/L (3.5-5.1)
[2019-05-25 04:19] VITALS: BP 133/59
--- NOTE | 2019-05-25 04:43 | NUR ---
ASSUMED PT CARE AT APPROX 1930. PT IS AWAKE AND ORIENTED X4. HEMATOLOGY SPECIALIST IS TRACING AV/V PACED. ASSESSMENT DONE AND CHARTED. PT DENIES PAIN/DISCOMFORT OF THIS TIME. HIGH FALL PRECAUTIONS IN PLACE. CALL LIGHT WITHIN REACH. HOURLY ROUNDING DONE FOR PT SAFETY.
[2019-05-25 06:09] LABS: ABSOLUTE LYMPHOCYTES 0.4 thou/uL (0.8-5.3); ABSOLUTE MONOCYTES 0.5 thou/uL (0.0-1.2); ABSOLUTE NEUTROPHILS 8.6 thou/uL (1.6-8.1); ANISOCYTOSIS 1+; PLATELET ESTIMATE DECREASED; POIKILOCYTOSIS 1+
[2019-05-25 08:00] VITALS: BP 112/54
--- NOTE | 2019-05-25 11:56 | NUR ---
ASSUMED CARE OF PATIENT THIS AM AT 0730. PATIENT IS ALERT AND ORIENTED X 4. HE C/O COUGH, WHEEZES AND RESTLESSNESS. PATIENT IS UP TO THE BATHROOM WITH STANDBY ASSIST. TELE SHOWS V PACED TO SOMETIMES AV PACED. FSBS MONITORED. RESPIRATORY TX PER RT. NO FALLS OR INJURY.
[2019-05-25 12:14] VITALS: BP 118/56
[2019-05-25 16:44] VITALS: BP 114/51
[2019-05-25 20:00] VITALS: BP 121/64
[2019-05-26 00:26] VITALS: BP 134/56
[2019-05-26 00:34] VITALS: BP 111/53
--- NOTE | 2019-05-26 03:20 | NUR ---
ASSUMED PT CARE AT [facility]OX 1930. PT IS AWAKE AND ORIENTED X4. CLIENT FINANCE ANALYST IS TRACING AV PACED. ASSESSMENT DONE AND CHARTED. PT DENIES PAIN/DISCOMFORT OF THIS TIME. HIGH FALL PRECAUTIONS IN PLACE. CALL LIGHT WITHIN REACH. HOURLY ROUNDING DONE FOR PT SAFETY.
[2019-05-26 04:01] VITALS: BP 119/61
[2019-05-26 04:22] LABS: ABSOLUTE LYMPHOCYTES 0.5 thou/uL (0.8-5.3); ABSOLUTE MONOCYTES 0.4 thou/uL (0.0-1.2); ABSOLUTE NEUTROPHILS 8.1 thou/uL (1.6-8.1); HEMATOCRIT 36.3 % (42.0-52.0); HEMOGLOBIN 12.7 gm/dL (14.0-18.0); LYMPHOCYTES 5.8 %; MCH 30.5 pg (26.0-34.0); MCHC 34.9 g/dL (28.0-37.0); MCV 87.4 fL (80.0-100.0); MONOCYTES 3.9 %; MPV 10.2 fl. (7.2-11.1); NUCLEATED RBCS 0 /100WBC; PLATELET COUNT* 124 thou/uL (150-400); POLYS 90.3 %; RBC 4.16 mil/uL (4.50-6.00); RDW-CV 14.5 % (10.5-14.5)
[2019-05-26 04:41] LABS: CALCIUM 8.5 mg/dL (8.5-10.1); CREATININE 0.8 mg/dL (0.6-1.3); POTASSIUM 3.2 mmol/L (3.5-5.1)
[2019-05-26 11:40] LABS: INFLUENZA A ANTIGEN Negative (Negative); INFLUENZA B ANTIGEN Negative (Negative)
--- NOTE | 2019-05-26 15:08 | 2DMMODE ---
[place] [address] 2 D/M-MODE ECHOCARDIOGRAM Name: MARQUITA MATHEW Room: [address] .R.#: [id number] Admission: 05/23/19 Attend Phys: Mireille Hawley Discharge: Date of : 50 Date of Service: 05/26/19 1506 Report #: [id number] THIS REPORT FOR: cc: Frank Quarles,Frank Sims,Destin Monahan MD [facility] ~ APPROVED REPORT Study performed: 05/26/2019 10:14:29 EXAM: Comprehensive 2D, Doppler, and color-flow Echocardiogram Patient Location: In-Patient Room #: [facility] Status: routine BSA: 2.22 HR: 80 bpm BP: 119/61 mmHg Rhythm: NSR Other Information Study Quality: Good Indications Congestive Heart Failure COPD 2D Dimensions IVSd: 12.07 (7-11mm) LVOT Diam: 22.22 (18-24mm) LVDd: 53.60 mm PWd: 10.92 (7-11mm) Ascending Ao: 33.07 (22-36mm) LVDs: 46.93 (25-40mm) Aortic Root: 33.07 mm Volumes Left Atrial Volume (Systole) LA ESV Index: 40.30 mL/m2 Aortic Valve AoV Peak Vaibhav.: 1.61 m/s AO Peak Gr.: 10.41 mmHg LVOT Max P.52 mmHg AO Mean Gr.: 6.46 mmHg LVOT Mean P.23 mmHg LVOT Max V: 1.06 m/s AO V2 VTI: 33.77 cm LVOT Mean V: 0.68 m/s YOSEPH (VTI): 2.84 cm2 LVOT V1 VTI: 24.71 [place] [address] 2 D/M-MODE ECHOCARDIOGRAM Name: MARQUITA MATHEW Room: [address] [place] .R.#: [id number] Admission: 05/23/19 Attend Phys: Mireille Hawley Discharge: Date of : 50 Date of Service: 05/26/19 1506 Report #: [id number] Mitral Valve E/A Ratio: 1.03 MV Decel. Time: 241.27 ms MV E Max Vaibhav.: 0.93 m/s MV PHT: 69.97 ms MVA (PHT): 3.14 cm2 TDI E/Lateral E': 7.15 E/Medial E': 15.50 Medial E' Vaibhav.: 0.06 m/s Lateral E' Vaibhav.: 0.13 m/s Pulmonary Valve PV Peak Vaibhav.: 1.01 m/s PV Peak Gr.: 4.07 mmHg Tricuspid Valve RAP Estimate: 5.00 mmHg TR Peak Gr.: 29.71 mmHg RVSP: 34.00 mmHg PA Pressure: 34.00 mmHg Left Ventricle Left ventricle is mildly dilated. There is diffuse hypokinesis of left ventricular wall motion. There is normal left ventricular wall thickness. Left ventricular systolic function is moderate to severely decreased. LVEF is 35%. Grade I - abnormal relaxation pattern. Right Ventricle The right ventricle is normal size. The right ventricular systolic function is normal. Pacemaker lead is present in the right ventricle. Atria Left atrium is mildly dilated. The right atrium size is normal. Aortic Valve Mild aortic valve sclerosis. No aortic regurgitation is present. There is no aortic valvular stenosis. Mitral Valve The mitral valve is normal in structure. Trace mitral regurgitation. No evidence of mitral valve stenosis. Tricuspid Valve The tricuspid valve is normal in structure. Mild tricuspid regurgitation. [place] [address] 2 D/M-MODE ECHOCARDIOGRAM Name: MARQUITA MATHEW Veena Room: [address] IN [facility]#: [id number] Admission: 05/23/19 Attend Phys: Mireille Hawley Discharge: Date of : 50 Date of Service: 05/26/19 1506 Report #: [id number] Pulmonic Valve The pulmonary valve is normal in structure. There is no pulmonic valvular regurgitation. Great Vessels The aortic root is normal in size. IVC is normal in size and collapses >50% with inspiration. Pericardium There is no pericardial effusion. <Conclusion> Left ventricle is mildly dilated. There is normal left ventricular wall thickness. Left ventricular systolic function is moderate to severely decreased. LVEF is 35%. Grade I - abnormal relaxation pattern. The right ventricle is normal size. Left atrium is mildly dilated. The right atrium size is normal. Mild aortic valve sclerosis. No aortic regurgitation is present. There is no aortic valvular stenosis. The mitral valve is normal in structure. Trace mitral regurgitation. The tricuspid valve is normal in structure. Mild tricuspid regurgitation. Mild pulmonary hypertension. IVC is normal in size and collapses >50% with inspiration. There is no pericardial effusion. There is diffuse hypokinesis of left ventricular wall motion. Pacemaker lead is present in the right ventricle. <ELECTRONICALLY SIGNED> By: Destin Thayer MD, FACC 05/26/19 1506 1506 1506 Destin Thayer MD, FACC /INF
[2019-05-26 16:17] VITALS: BP 112/55
--- NOTE | 2019-05-26 16:30 | NUR ---
Nutrition: Pt was busy with staff at time of attempted visit. Seen for high BMI. Admitted with COPD exac. 2gm Na diet ordered. H/o COPD, asthma, DM. BG 138, alb 3.4. Wt is in usual range, 263#. No nutrition interventions needed at this time. Mild to low risk.
[2019-05-26 20:02] VITALS: BP 109/58
[2019-05-26 21:00] VITALS: BP 133/70
--- NOTE | 2019-05-27 04:22 | NUR ---
ASSUMED CARE OF PT 06/03/18 AT APPROX 2042. PT A&OX4, PT ON ROOM AIR, VSS, PT USES BIPAP AT NIGHT - REFUSED BIPAP THIS SHIFT. ASSESSMENTS AND HOURLY ROUNDINGS COMPLETED. WILL CONTINUE TO MONITOR.
[2019-05-27] MEDS ORDERED: DOXYCYCLINE 10100 MG PO (08:03)
[2019-05-27] MEDS ORDERED: PROTONIX40 M1 PO (08:07)
[2019-05-27] MEDS ORDERED: PREDNISONE 10 M10 MG PO (08:07)
[2019-05-27 08:50] VITALS: BP 105/55
--- NOTE | 2019-05-27 13:54 | NUR ---
RE: HEART FAILURE MEDICATION EDUCATION I PROVIDE PATIENT A HEART FAILURE MEDICATION INFORMATION HANDOUT. ALL PATIENTS QUESTIONS WERE ANWERED. PHARMACY IS AVAILABLE FOR ANY FUTURE QUESTIONS. THANK YOU.
--- NOTE | 2019-05-27 14:15 | NUR ---
1330: DISCHARGE INSTRUCTIONS REVIEWED W/ PATIENT. PATIENT STATES VERBALLY OF UNDERSTANDING, "THIS IS NOT THE FIRST TIME I HAVE HEARD THESE THINGS". PATIENT PLEASANT AND COOPERATIVE THRU SHIFT. DENIES PAIN/SOB/CP/N/V/D. HRLY ROUNDS DONE. PATIENT EATING WELL. PATIENT STATES WAITING FOR FOR RIDE HOME. WILL NOTIFY STAFF WHEN SHE ARRIVES. IV CATH DISCONTINUED, CATH TIP INTACT, COTTON BALL/TAPE APPLIED TO SITE. ~TJRN 1415: IN TO TAKE PATIENT HOME. BELONINGS GATHERED, ASST TO JSSI ENTRANCE PER WC, NURSING PRESENT. DENIES OTHER NEEDS AT THIS TIME. ~TJRN
== END 2019-05-27 14:15 | disposition home or self-care (01) | DRG 291 ==
LOC: M.ERS 16:18 → M.2W 18:44 → M.TBA-ER 18:44 → M.2W 20:05 → M.ORTHSURG 05-26 20:42
PROVIDERS: Emergency Medicine Emergency Medical Services; Internal Medicine; ADMIT Internal Medicine
DX: I50.23 Acute on chronic systolic (congestive) heart failure (principal); J96.20 Acute and chronic respiratory failure, unspecified whether with hypoxia or hypercapnia; J44.1 Chronic obstructive pulmonary disease with (acute) exacerbation; Z68.41 Body mass index [BMI] 40.0-44.9, adult; J44.0 Chronic obstructive pulmonary disease with (acute) lower respiratory infection; I48.91 Unspecified atrial fibrillation; J20.9 Acute bronchitis, unspecified; E11.65 Type 2 diabetes mellitus with hyperglycemia; I89.8 Other specified noninfective disorders of lymphatic vessels and lymph nodes; I73.9 Peripheral vascular disease, unspecified; E66.01 Morbid (severe) obesity due to excess calories; Z95.0 Presence of cardiac pacemaker; Z79.899 Other long term (current) drug therapy; Z79.4 Long term (current) use of insulin; Z79.1 Long term (current) use of non-steroidal anti-inflammatories (NSAID); Z88.8 Allergy status to other drugs, medicaments and biological substances; Z88.1 Allergy status to other antibiotic agents; Z88.2 Allergy status to sulfonamides; Z82.49 Family history of ischemic heart disease and other diseases of the circulatory system; Z87.891 Personal history of nicotine dependence

== ENCOUNTER 2019-06-22 10:26 | Emergency (ER) | payer MEDICARE, OTHER ==
[~2019-06-22] VITALS: Ht 165.1 cm; Wt 109.8 kg
[~2019-06-22 10:26] MED LIST changes: +DOXYCYCLINE 10100 MG PO; +ENTRESTO 24 MG1 EACH PO
[2019-06-22] MEDS ORDERED: MUPIROCIN15 GM TOP (11:16)
[2019-06-22 11:20] VITALS: BP 102/56
== END 2019-06-22 12:00 | disposition home or self-care (01) ==
LOC: M.ERS 10:26
DX: S81.801A Unspecified open wound, right lower leg, initial encounter (principal); I48.91 Unspecified atrial fibrillation; I50.9 Heart failure, unspecified; J45.909 Unspecified asthma, uncomplicated; J44.9 Chronic obstructive pulmonary disease, unspecified; E66.01 Morbid (severe) obesity due to excess calories; G47.30 Sleep apnea, unspecified; Z68.41 Body mass index [BMI] 40.0-44.9, adult; Z95.0 Presence of cardiac pacemaker; Z87.891 Personal history of nicotine dependence; Z88.1 Allergy status to other antibiotic agents; Z88.2 Allergy status to sulfonamides; Z88.6 Allergy status to analgesic agent; Z88.8 Allergy status to other drugs, medicaments and biological substances; X58.XXXA Exposure to other specified factors, initial encounter; Y93.89 Activity, other specified; Y92.89 Other specified places as the place of occurrence of the external cause; Y99.8 Other external cause status

== ENCOUNTER → 2019-08-26 | Outpatient (CLI) | payer MEDICARE, OTHER ==
[~2019-08-26] MED LIST changes: +MUPIROCIN15 GM TOP
== END ==
LOC: M.WC 05:03
PROVIDERS: ATTEND Family Medicine
DX: S81.801D Unspecified open wound, right lower leg, subsequent encounter (principal); I89.0 Lymphedema, not elsewhere classified; E11.51 Type 2 diabetes mellitus with diabetic peripheral angiopathy without gangrene; E66.01 Morbid (severe) obesity due to excess calories; G47.30 Sleep apnea, unspecified; I11.0 Hypertensive heart disease with heart failure; I50.9 Heart failure, unspecified; I48.91 Unspecified atrial fibrillation; J44.9 Chronic obstructive pulmonary disease, unspecified; Z87.891 Personal history of nicotine dependence; Z95.0 Presence of cardiac pacemaker; Z68.41 Body mass index [BMI] 40.0-44.9, adult; X58.XXXD Exposure to other specified factors, subsequent encounter

== ENCOUNTER → 2019-09-09 | Outpatient (CLI) | payer MEDICARE, OTHER | LOC: M.WC 04:59 | PROVIDERS: ATTEND Family Medicine | DX: I89.0 Lymphedema, not elsewhere classified (principal); S81.801D Unspecified open wound, right lower leg, subsequent encounter; E11.51 Type 2 diabetes mellitus with diabetic peripheral angiopathy without gangrene; E66.01 Morbid (severe) obesity due to excess calories; G47.30 Sleep apnea, unspecified; I11.0 Hypertensive heart disease with heart failure; I50.9 Heart failure, unspecified; I48.91 Unspecified atrial fibrillation; J44.9 Chronic obstructive pulmonary disease, unspecified; Z95.0 Presence of cardiac pacemaker; Z87.891 Personal history of nicotine dependence; Z68.41 Body mass index [BMI] 40.0-44.9, adult ==

== ENCOUNTER → 2019-09-23 | Outpatient (CLI) | payer MEDICARE, OTHER | LOC: M.WC 04:22 | PROVIDERS: ATTEND Family Medicine | DX: I89.0 Lymphedema, not elsewhere classified (principal); S81.801D Unspecified open wound, right lower leg, subsequent encounter; E11.51 Type 2 diabetes mellitus with diabetic peripheral angiopathy without gangrene; E66.01 Morbid (severe) obesity due to excess calories; G47.30 Sleep apnea, unspecified; I11.0 Hypertensive heart disease with heart failure; I50.9 Heart failure, unspecified; I48.91 Unspecified atrial fibrillation; J44.9 Chronic obstructive pulmonary disease, unspecified; Z95.0 Presence of cardiac pacemaker; Z87.891 Personal history of nicotine dependence; Z68.41 Body mass index [BMI] 40.0-44.9, adult; X58.XXXD Exposure to other specified factors, subsequent encounter ==

== ENCOUNTER → 2019-10-21 | Outpatient (CLI) | payer MEDICARE, OTHER | LOC: M.WC 04:21 | PROVIDERS: ATTEND Family Medicine | DX: S81.801D Unspecified open wound, right lower leg, subsequent encounter (principal); I89.0 Lymphedema, not elsewhere classified; E11.51 Type 2 diabetes mellitus with diabetic peripheral angiopathy without gangrene; E66.01 Morbid (severe) obesity due to excess calories; G47.30 Sleep apnea, unspecified; I11.0 Hypertensive heart disease with heart failure; I50.9 Heart failure, unspecified; I48.91 Unspecified atrial fibrillation; J44.9 Chronic obstructive pulmonary disease, unspecified; Z68.41 Body mass index [BMI] 40.0-44.9, adult; Z87.891 Personal history of nicotine dependence; Z95.0 Presence of cardiac pacemaker; X58.XXXD Exposure to other specified factors, subsequent encounter ==

== ENCOUNTER → 2019-11-25 | Outpatient (CLI) | payer MEDICARE, OTHER | LOC: M.WC 00:42 | PROVIDERS: ATTEND Family Medicine | DX: L97.112 Non-pressure chronic ulcer of right thigh with fat layer exposed (principal); S81.801D Unspecified open wound, right lower leg, subsequent encounter; I89.0 Lymphedema, not elsewhere classified; J44.9 Chronic obstructive pulmonary disease, unspecified; I11.0 Hypertensive heart disease with heart failure; I50.9 Heart failure, unspecified; E66.01 Morbid (severe) obesity due to excess calories; G47.30 Sleep apnea, unspecified; Z95.0 Presence of cardiac pacemaker; Z87.891 Personal history of nicotine dependence; Z68.41 Body mass index [BMI] 40.0-44.9, adult; Z79.4 Long term (current) use of insulin; Z79.01 Long term (current) use of anticoagulants; X58.XXXD Exposure to other specified factors, subsequent encounter ==

== ENCOUNTER → 2019-12-23 | Outpatient (CLI) | payer MEDICARE, OTHER | LOC: M.WC 05:03 | PROVIDERS: ATTEND Family Medicine | DX: I89.0 Lymphedema, not elsewhere classified (principal); S81.801D Unspecified open wound, right lower leg, subsequent encounter; E11.51 Type 2 diabetes mellitus with diabetic peripheral angiopathy without gangrene; E66.01 Morbid (severe) obesity due to excess calories; G47.30 Sleep apnea, unspecified; I11.0 Hypertensive heart disease with heart failure; I50.9 Heart failure, unspecified; I48.91 Unspecified atrial fibrillation; J44.9 Chronic obstructive pulmonary disease, unspecified; Z95.0 Presence of cardiac pacemaker; Z68.41 Body mass index [BMI] 40.0-44.9, adult; Z87.891 Personal history of nicotine dependence; X58.XXXD Exposure to other specified factors, subsequent encounter ==

== ENCOUNTER → 2020-01-20 | Outpatient (CLI) | payer MEDICARE, OTHER | LOC: M.WC 08:17 | PROVIDERS: ATTEND Family Medicine | DX: I89.0 Lymphedema, not elsewhere classified (principal); L03.116 Cellulitis of left lower limb; S81.801D Unspecified open wound, right lower leg, subsequent encounter; E11.51 Type 2 diabetes mellitus with diabetic peripheral angiopathy without gangrene; E66.01 Morbid (severe) obesity due to excess calories; I11.0 Hypertensive heart disease with heart failure; I50.9 Heart failure, unspecified; I48.91 Unspecified atrial fibrillation; G47.30 Sleep apnea, unspecified; J44.9 Chronic obstructive pulmonary disease, unspecified; Z95.0 Presence of cardiac pacemaker; Z68.41 Body mass index [BMI] 40.0-44.9, adult; Z87.891 Personal history of nicotine dependence; X58.XXXD Exposure to other specified factors, subsequent encounter ==

== ENCOUNTER → 2020-03-23 | Outpatient (CLI) | payer MEDICARE, OTHER | LOC: M.WC 09:49 | PROVIDERS: ATTEND Family Medicine | DX: I89.0 Lymphedema, not elsewhere classified (principal); S81.801D Unspecified open wound, right lower leg, subsequent encounter; L84 Corns and callosities; L03.116 Cellulitis of left lower limb; E11.51 Type 2 diabetes mellitus with diabetic peripheral angiopathy without gangrene; E66.01 Morbid (severe) obesity due to excess calories; I11.0 Hypertensive heart disease with heart failure; I50.9 Heart failure, unspecified; I48.91 Unspecified atrial fibrillation; G47.30 Sleep apnea, unspecified; J44.9 Chronic obstructive pulmonary disease, unspecified; Z95.0 Presence of cardiac pacemaker; Z68.41 Body mass index [BMI] 40.0-44.9, adult; Z87.891 Personal history of nicotine dependence; X58.XXXD Exposure to other specified factors, subsequent encounter ==

== ENCOUNTER → 2020-05-11 | Outpatient (CLI) | payer MEDICARE, OTHER | LOC: M.WC 04-27 10:00 | PROVIDERS: ATTEND Surgery | DX: I89.0 Lymphedema, not elsewhere classified (principal); S81.801D Unspecified open wound, right lower leg, subsequent encounter; L84 Corns and callosities; L03.116 Cellulitis of left lower limb; E11.51 Type 2 diabetes mellitus with diabetic peripheral angiopathy without gangrene; E66.01 Morbid (severe) obesity due to excess calories; I11.0 Hypertensive heart disease with heart failure; I50.9 Heart failure, unspecified; I48.91 Unspecified atrial fibrillation; G47.30 Sleep apnea, unspecified; J44.9 Chronic obstructive pulmonary disease, unspecified; Z95.0 Presence of cardiac pacemaker; Z68.41 Body mass index [BMI] 40.0-44.9, adult; Z87.891 Personal history of nicotine dependence; X58.XXXD Exposure to other specified factors, subsequent encounter ==

== ENCOUNTER → 2020-05-26 | Outpatient (CLI) | payer MEDICARE, OTHER | LOC: M.RAD 11:19 | PROVIDERS: ATTEND Registered Nurse | DX: I48.0 Paroxysmal atrial fibrillation (principal) ==

== ENCOUNTER → 2020-10-06 | Outpatient (CLI) | payer MEDICARE, OTHER ==
[2020-10-06 14:01] LABS: ALBUMIN 3.3 g/dL (3.4-5.0); DIRECT BILIRUBIN 0.1 mg/dL (<0.1-0.3); TOTAL BILIRUBIN 0.3 mg/dL (<0.1-1.0); TOTAL PROTEIN 6.4 g/dL (6.4-8.2)
== END ==
LOC: M.LAB 11:13
PROVIDERS: ATTEND Registered Nurse
DX: I48.0 Paroxysmal atrial fibrillation (principal)

== ENCOUNTER → 2020-11-28 | Outpatient (CLI) | payer MEDICARE, OTHER ==
--- NOTE | 2020-11-28 16:42 | 2DMMODE ---
[place] [address] 2 D/M-MODE ECHOCARDIOGRAM Name: MARQUITA MATHEW Room: [facility]#: [id number] Admission: 11/28/20 Attend Phys: Edith Meyers RN Discharge: Date of : 50 Date of Service: 11/28/20 1641 Report #: [id number] THIS REPORT FOR: cc: Frank Quarles,Frank Benson,Xiang Nuno MD [facility] ~ APPROVED REPORT Study performed: 11/28/2020 10:55:48 EXAM: Comprehensive 2D, Doppler, and color-flow Echocardiogram Patient Location: Out-Patient BSA: 2.14 HR: 94 bpm BP: 120/68 mmHg Other Information Study Quality: Good Indications Cardiomyopathy 2D Dimensions IVSd: 10.59 (7-11mm) LVOT Diam: 20.80 (18-24mm) LVDd: 50.09 mm PWd: 11.78 (7-11mm) Ascending Ao: 32.80 (22-36mm) LVDs: 40.76 (25-40mm) Aortic Root: 30.40 mm Volumes Left Atrial Volume (Systole) LA ESV Index: 24.60 mL/m2 Aortic Valve AoV Peak Vaibhav.: 1.38 m/s AO Peak Gr.: 7.56 mmHg LVOT Max P.68 mmHg AO Mean Gr.: 4.45 mmHg LVOT Mean P.51 mmHg LVOT Max V: 0.82 m/s AO V2 VTI: 26.14 cm LVOT Mean V: 0.57 m/s YOSEPH (VTI): 2.15 cm2 LVOT V1 VTI: 16.53 cm Mitral Valve MV Decel. Time: 185.93 [place] [address] 2 D/M-MODE ECHOCARDIOGRAM Name: MARUQITA MATHEW Room: [facility]#: [id number] Admission: 11/28/20 Attend Phys: Edith Meyers RN Discharge: Date of : 50 Date of Service: 11/28/20 1641 Report #: [id number] MV PHT: 53.92 ms MVA (PHT): 4.08 cm2 TDI Medial E' Vaibhav.: 0.07 m/s Lateral E' Vaibhav.: 0.06 m/s Pulmonary Valve PV Peak Vaibhav.: 0.86 m/s PV Peak Gr.: 2.96 mmHg Tricuspid Valve RAP Estimate: 5.00 mmHg TR Peak Gr.: 29.45 mmHg RVSP: 34.45 mmHg PA Pressure: 34.45 mmHg Left Ventricle The left ventricle is normal size. There is global hypokinesis of the left ventricle. There is normal left ventricular wall thickness. Left ventricular systolic function is moderately decreased. LVEF is 40-45%. Grade I - abnormal relaxation pattern. Right Ventricle The right ventricle is normal size. The right ventricular systolic function is normal. Pacemaker lead is present in the right ventricle. Atria The left atrium size is normal. Pacemaker lead is present in the right atrium. The right atrium size is normal. Aortic Valve The aortic valve is normal in structure. No aortic regurgitation is present. There is no aortic valvular stenosis. Mitral Valve The mitral valve is normal in structure. Mild mitral regurgitation. No evidence of mitral valve stenosis. Tricuspid Valve The tricuspid valve is normal in structure. Mild tricuspid regurgitation. Pulmonic Valve Pulmonic valve is not well visualized. Mild pulmonic regurgitation[place] [address] 2 D/M-MODE ECHOCARDIOGRAM Name: MARQUITA MATHEW Room: [facility]#: [id number] Admission: 11/28/20 Attend Phys: Edith Meyers RN Discharge: Date of : 50 Date of Service: 11/28/20 1641 Report #: [id number] The aortic root is normal in size. IVC is normal in size and collapses >50% with inspiration. Pericardium There is no pericardial effusion. <Conclusion> LVEF is 40-45%. There is global hypokinesis of the left ventricle. Mild mitral regurgitation. Mild tricuspid regurgitation. <ELECTRONICALLY SIGNED> By: Xaing Shepherd MD, [facility] 11/28/201640 40 40 Xiang Shepherd MD, [facility] /INF
== END ==
LOC: M.CRD 11-21 10:00
PROVIDERS: ATTEND Registered Nurse
DX: I08.8 Other rheumatic multiple valve diseases (principal); I42.8 Other cardiomyopathies